=== PATIENT | male | born 1970 | race African-American/Black ===

== ENCOUNTER 2019-03-10 12:03 | Emergency (ER) | payer SELFPAY ==
[2019-03-10] MEDS ORDERED: ALBUTEROL/IPRATROPIUM 3 ML NEB ONE (12:09)
[2019-03-10] MEDS ORDERED: ALBUTEROL/IPRATROPIUM 3 ML NEB NEB ONE ×2 (12:10→14:40)
--- NOTE | 2019-03-10 12:10 | ER Report ---
History and Physical Time Seen By MD: 12:06 Hx. of Stated Complaint: sob, hx of asthma and normal treatments not effective HPI/ROS CHIEF COMPLAINT: SOB HISTORY OF PRESENT ILLNESS: Patient is a 48 year old male presenting to the ED for SOB that started on Friday. It has been steady since then. Patient is a mechanic welder truck driver and states he has symptoms similar to this every time he drives through higher elevation. Is on his way from [place] to [place] now. Patient has a long history of asthma with hospitalizations. Has been using his Albuterol inhaler, Symbicort and takes prednisone daily with no relief. SOB is worse with sleeping and exertion. Has not been able to sleep since Friday. No history of MO or blood clots. No fever, chills, cough. REVIEW OF SYSTEMS: Respiratory: No cough, dyspnea, SOB Cardiovascular: No chest pain, no palpitations. Gastrointestinal: No vomiting, no abdominal pain. Musculoskeletal: No back pain. Allergies: Coded Allergies: No Known Drug Allergies (Unverified , 03/10/19) Home Meds Active Scripts Prednisone (PREDNISONE) 20 Mg Tablet, 40 MG PO DAILY, #8 TAB Prov:THUAN DELCID SUPERIOR [employer] CLERK 03/10/19 Reported Medications Budesonide/Formoterol Fumarate (SYMBICORT 160-4.5 MCG INHALER) 10.2 Gm Inh, 10.2 GM INH, INH 03/10/19 Albuterol Sulfate (PROVENTIL HFA) 6.7 Gm Inh, 1-2 PUFF INH 3-4XD, INH 03/10/19 Prednisone (Prednisone) 5 Mg Tablet, 5 MG PO DAILY 03/10/19 Losartan Potassium (LOSARTAN POTASSIUM) 100 Mg Tablet, 100 MG PO QDAY 03/10/19 Past Medical/Surgical History Past medical history of HTN, asthma No pertinent past surgical history Hospitalization history for asthma exacerbations (all his life, last time 6 months ago) No pertinent family history Reviewed Nurses Notes: Yes Constitutional Vital Sign - Last 24 Hours 03/10/19 03/10/19 03/10/19 03/10/19 12:03 12:03 12:04 12:09 Temp 97.7 Pulse 94 94 90 Resp 18 20 18 B/P (MAP) 150/136 Pulse Ox 95 94 O2 Delivery Nasal Cannula Nasal Cannula O2 Flow Rate 3.0 03/10/19 03/10/19 03/10/19 03/10/19 12:09 12:15 12:30 13:00 Resp 40 30 B/P (MAP) 155/123 (134) 144/111 (122) Pulse Ox 93 94 O2 Delivery Nasal Cannula O2 Flow Rate 2.0 3.0 03/10/19 03/10/19 03/10/19 03/10/19 13:30 14:00 14:34 14:45 Pulse 104 105 Resp 18 12 18 B/P (MAP) 151/125 (134) 147/119 (128) 127/92 (104) Pulse Ox 93 85 03/10/19 03/10/19 03/10/19 03/10/19 14:45 14:54 15:00 15:30 Pulse 107 112 113 Resp 18 21 31 B/P (MAP) 156/130 (139) 144/114 (124) Pulse Ox 93 O2 Delivery Nasal Cannula O2 Flow Rate 1.5 03/10/19 03/10/19 16:38 16:53 Pulse 110 Resp 20 B/P (MAP) 154/136 (142) 154/136 (142) Pulse Ox 90 O2 Delivery Room Air Physical Exam General Appearance: The patient is alert, has no immediate need for airway protection and no current signs of toxicity. Eyes: Pupils equal and round no injection. Respiratory: Chest is non tender, lungs are clear to auscultation, wheezes in the right lower lung field Cardiac: regular rate and rhythm Gastrointestinal: Abdomen is soft and non tender, no masses, bowel sounds normal. Musculoskeletal: Neck: Neck is supple and non tender. Extremities have full range of motion and are non tender. Skin: No rashes or lesions. DIFFERENTIAL DIAGNOSIS: After history and physical exam differential diagnosis was considered for asthma exacerbation, high altitude, pneumonia, PE, MO Medical Decision Making Data Points Result Diagram: 03/10/19 1204 03/10/19 1204 Laboratory Hematology Test 03/10/19 12:04 White Blood Count 6.0 k/uL (4.5-11.0) Red Blood Count 4.46 M/uL (4.00-5.60) Hemoglobin 13.4 g/dL (14.0-18.0) L Hematocrit 39.9 % (42.0-52.0) L Mean Corpuscular Volume 89.3 fL (80.0-96.0) Mean Corpuscular Hemoglobin 30.1 pg (26.0-33.0) Mean Corpuscular Hemoglobin Concent 33.7 g/dL (32.0-36.0) Red Cell Distribution Width 13.3 % (11.5-14.5) Platelet Count 425 K/uL (150-450) Mean Platelet Volume 7.6 fL (7.2-11.1) Neutrophils (%) (Auto) 64.8 % (39.4-72.5) Lymphocytes (%) (Auto) 23.1 % (17.6-49.6) Monocytes (%) (Auto) 10.7 % (4.1-12.4) Eosinophils (%) (Auto) 0.3 % (0.4-6.7) L Basophils (%) (Auto) 1.1 % (0.3-1.4) Nucleated RBC Relative Count (auto) 0.2 /100WBC Neutrophils # (Auto) 3.9 K/uL (2.0-7.4) Lymphocytes # (Auto) 1.4 K/uL (1.3-3.6) Monocytes # (Auto) 0.6 K/uL (0.3-1.0) Eosinophils # (Auto) 0.0 K/uL (0.0-0.5) Basophils # (Auto) 0.1 K/uL (0.0-0.1) Nucleated RBC Absolute Count (auto) 0.01 K/uL Erythrocyte Sedimentation Rate 18 mm/HOUR (0-15) H Chemistry Test 03/10/19 12:04 03/10/19 15:48 Sodium Level 135 mmol/L (137-145) Potassium Level 3.9 mmol/L (3.5-5.0) Chloride Level 101 mmol/L (98-107) Carbon Dioxide Level 25 mmol/L (22-30) Blood Urea Nitrogen 9 mg/dl (9-21) Creatinine 1.20 mg/dl (0.66-1.25) Glomerular Filtration Rate Calc > 60.0 Random Glucose 114 mg/dl (75-110) Calcium Level 9.1 mg/dl (8.4-10.2) Total Bilirubin 0.8 mg/dl (0.2-1.3) Aspartate Amino Transf (AST/SGOT) 30 U/L (0-35) Alanine Aminotransferase (ALT/SGPT) 28 U/L (0-56) Alkaline Phosphatase 85 U/L (0-126) Total Protein 6.7 g/dl (6.3-8.2) Albumin 3.6 g/dl (3.5-5.0) Troponin I 0.046 ng/ml Coagulation Test 03/10/19 12:04 D-Dimer Quantitative (PE/DVT) 0.38 ug/ml (0-0.50) EKG/Imaging EKG Interpretation 12 lead EKG: Rhythm: Sinus Tachycardia [place]: normal QRS: left ventricular hypertrophy ST segments: nonspecific t wave abnormality Imaging CHEST PA LAT History: SOB Additional history: Asthmatic. Shortness of breath high repetitions. FINDINGS: Comparison studies: None. Tubes and Lines: None. Lungs and pleura: There is a wedge-shaped area of increased airspace opacity seen in the right upper lobe. There is a small area of right sided perihilar consolidation. Left lung normal. Mediastinum: normal. Cardiac silhouette: normal . Osseous structures: Unremarkable for age . IMPRESSION: Given the above history, obstructive atelectasis right upper lung related to reactive airways from patient's asthma leads the differential. Pneumonia also possible. Small right perihilar area of consolidation is probably related. However, malignancy cannot be excluded and consequently I would recommend follow-up two-view chest radiograph in 4-6 weeks time to ensure complete resolution. If persistent than contrasted chest CT should be considered. Report Dictated By: Jorge Ribeiro MD at 03/10/2019 1:11 PM Report E-Signed By: Jorge Ribeiro MD at 03/10/2019 1:16 PM WSN:[id number] ED Course/Re-evaluation ED Course Patient presented to the ED with SOB that has been steady since he began his decent from [place] to [place] on Friday. He is a mechanic welder truck driver, history of asthma with exacerbations and hospitalizations in the past. Last time being 6 months ago. Has experienced this shortness of breath every time he goes to higher altitude. Patient has been using albuterol inhaler, Simbicort inhlaer and prednisome pills with no relief. SOB is worth with sleeping and exertion. He has not been able to sleep since friday which is why he came in as he can't drive tired. Patient received a duoneb treatment on arrival which did improve his breathing. Physical exam was benign other than wheezes heard in the lower right lung. Cardiac and pulmonary work up began including CBC, CMP, ESR, Troponin, D- dimer, Chest XR and EKG. Differential diagnoses considered. Troponin result warrented a repeat Trop after 4 hours. Chest XR showed atalectasis in the left lung which radiology suggested patient get a repeat CXR in 4-6 weeks. Alll other lab work was benign. Patient understood his condition of asthma exacerbation due to high altitude. He was given a second DuoNeb + simbicort treatment as well as prednisone. Discharged. Decision to Disposition Date: Mar 10, 2019 Decision to Disposition Time: 16:28 Depart Departure Latest Vital Signs Vital Signs Date Time Temp Pulse Resp B/P (MAP) Pulse Ox O2 Delivery O2 Flow Rate FiO2 03/10/19 16:53 110 20 154/136 (142) 90 Room Air 03/10/19 14:45 1.5 03/10/19 12:04 97.7 Impression: Primary Impression: Asthma exacerbation Condition: Improved Disposition: HOME OR SELF-CARE New Scripts Prednisone (PREDNISONE) 20 Mg Tablet 40 MG PO DAILY, #8 TAB Prov: THUAN DELCID 03/10/19 Patient Instructions: Asthma (ED) Additional Instructions: Continue to use breathing treatments. If symptoms do not improve return to ED or primary care physician. Problem Qualifiers Primary Impression: Asthma exacerbation Asthma severity: moderate Asthma persistence: persistent Qualified Codes: J45.41 - Moderate persistent asthma with (acute) exacerbation THUAN DELCID Mar 10, 2019 12:10
[2019-03-10] MEDS ORDERED: PRED-317 PO (12:17)
[2019-03-10] MEDS ORDERED: ALB6.7R INH (12:17)
[2019-03-10] MEDS ORDERED: BUDE10.2 INH (12:17)
[2019-03-10] MEDS ORDERED: LOSA100T75 PO (12:17)
[2019-03-10 12:21] LABS: PLATELET COUNT, AUTOMATED 425 K/uL (150-450)
--- NOTE | 2019-03-10 12:39 | EKG ---
FACILITY: [facility] PATIENT NAME: DEMETRIO HIGHTOWER : [id number] MR: [id number] V: [id number] EXAM DATE: ORDERING PHYSICIAN: THUAN DELCID TECHNOLOGIST: ESTELLA Yoon Reason : SOB Blood Pressure : / mmHG Vent. Rate : 107 BPM Atrial Rate : 107 BPM P-R Int : 132 ms QRS Dur : 088 ms QT Int : 364 ms P-R-T Axes : 045 017 061 degrees QTc Int : 485 ms Sinus tachycardia Possible left atrial enlargement Borderline voltage for LVH Abnormal ECG No previous ECGs available Confirmed by TIANNA JONES ([id number]) on 03/10/2019 5:54:25 PM Referred By: BHAVIN Confirmed By:TIANNA JONES
[2019-03-10] MEDS ORDERED: methylPREDNIS SUCC 125 MG/2ML IVP ONE (12:50)
--- NOTE | 2019-03-10 13:24 | RADIOLOGY IMAGING REPORT ---
FACILITY: [facility] - [place] PATIENT NAME: Michelle Smith : 1970 MR: [id number] V: [id number] EXAM DATE: ORDERING PHYSICIAN: THUAN DELCID TECHNOLOGIST: Location: [facility] Patient: Michelle Smtih : 1970 Visit/Account:[id number] Date of Sevice: 03/10/2019 CHEST PA LAT History: SOB Additional history: Asthmatic. Shortness of breath high repetitions. FINDINGS: Comparison studies: None. Tubes and Lines: None. Lungs and pleura: There is a wedge-shaped area of increased airspace opacity seen in the right uppe r lobe. There is a small area of right sided perihilar consolidation. Left lung normal. Mediastinum: normal. Cardiac silhouette: normal . Osseous structures: Unremarkable for age . IMPRESSION: Given the above history, obstructive atelectasis right upper lung related to reactive airways from patient's asthma leads the differential. Pneumonia also possible. Small right perihilar area of con solidation is probably related. However, malignancy cannot be excluded and consequently I would robyn mmend follow-up two-view chest radiograph in 4-6 weeks time to ensure complete resolution. If persis tent than contrasted chest CT should be considered. Report Dictated By: Jorge Ribeiro MD at 03/10/2019 1:11 PM Report E-Signed By: Jorge Ribeiro MD at 03/10/2019 1:16 PM WSN:[id number]
[2019-03-10] MEDS ORDERED: BUDESO/FORMOT 160/4.5 MCG 6 GM INH ONE (16:35)
[2019-03-10] MEDS ORDERED: predniSONE 20 MG TAB PO ONE (16:35)
[2019-03-10] MEDS ORDERED: ALBUTEROL 8 GM INHALER INH ONE (16:35)
[2019-03-10] MEDS ORDERED: PRED20TA6 PO (16:37)
[2019-03-10 16:53] VITALS: BP 154/136
== END 2019-03-10 16:55 | disposition home or self-care (01) ==
LOC: ER 12:04
DX: J45.41 Moderate persistent asthma with (acute) exacerbation (principal)
CPT/HCPCS: 36415; 71046; 84484; 85025; 85379; 85651; 93005; 94640; 96374; 99284; J2930; J7512; J7620; 82040; 82247; 82310; 82374; 82435; 82565; 82947; 84075; 84132; 84155; 84295; 84450; 84460; 84520

== ENCOUNTER → 2019-03-10 | Outpatient (CLI) | payer SELFPAY ==
[~2019-03-10] MED LIST: ALB6.7R INH; BUDE10.2 INH; LOSA100T75 PO; PRED-317 PO; PRED20TA6 PO
== END ==
LOC: AMB 11:18
PROVIDERS: ATTEND Nurse Practitioner
DX: R06.00 Dyspnea, unspecified (principal); R06.2 Wheezing
CPT/HCPCS: A0425; A0429